=== PATIENT | female | born 1990 | race Caucasian/White ===

== ENCOUNTER 2023-09-30 09:29 | Emergency (ER) | payer BC, SELFPAY ==
[2023-09-30 09:35] VITALS: BP 133/75; PULSE 86; RESP 16; TEMP 36.9; O2SAT 100
[2023-09-30 09:40] VITALS: BP 133/75; PULSE 86; RESP 16; TEMP 36.9; O2SAT 100
--- NOTE | 2023-09-30 10:02 | ED.ABDPAIN ---
HPI - Abdominal Pain General Chief Complaint: Abdominal Pain Stated Complaint: Abdominal Pain Source: patient Mode of arrival: ambulatory Limitations: no limitations History of Present Illness HPI narrative: Patient presents for evaluation of abdominal pain. Symptom onset 0 last night. She has associated nausea and vomiting. She had some diarrhea 2 days ago. She has small bowel movement this morning which was solid and consistency. She denies any fever, urinary symptoms, vaginal bleeding or discharge. No history of similar symptoms. Pain is constant, stabbing and rated 8/10 in severity. She had bariatric surgery in the past. Denies other abdominal surgeries. LMP 09/04/23. Related Data Home Medications Medication Instructions Recorded Confirmed bupropion HCl 300 mg 24 hr tablet, mg PO 09/30/23 extended release buspirone 10 mg tablet mg 09/30/23 desvenlafaxine succinate 100 mg mg PO 09/30/23 tablet,extended release 24 hr zolpidem 12.5 mg tablet,extended mg PO 09/30/23 release,multiphase Allergies Allergy/AdvReac Type Severity Reaction Status Date / Time No Known Allergies Allergy Unknown Verified 04/06/18 15:37 Review of Systems Review of Systems: CONSTITUTIONAL: Denies fever, chills, or sweats. EYES: Denies visual changes, redness, or discharge. ENT: Denies rhinorrhea, congestion, sore throat, or otalgia. CARDIOVASCULAR: Denies chest pain, palpitations, or edema. RESPIRATORY: Denies cough or dyspnea. GASTROINTESTINAL: Reports abdominal pain, nausea, vomiting and recent diarrhea. GENITOURINARY: Denies dysuria or hematuria. SKIN: Denies rash or itching. MUSCULOSKELETAL: Denies back pain, joint pain, or myalgia. NEUROLOGIC: Denies headache, numbness, dizziness, or weakness. PSYCHIATRIC: Denies anxiety or depression. [facility] Past Medical History Medical History Obesity Surgical History Surgical History History of bariatric surgery Family History Family History Mother Family history unknown Social History Social History Substance use: never Living arrangements: with family Gender identity (if verbalized by the patient): Female Sexual Orientation (if Verbalized by the Patient): Straight or Heterosexual Spiritual care concerns: No Exam Narrative: GENERAL: Well-appearing, well-nourished, and in no acute distress. HEAD: Normocephalic, atraumatic. EYES: PERRLA and EOMI. ENT: Nares clear, no rhinorrhea or epistaxis. Mucous membranes moist. Oropharynx without tonsillar hypertrophy exudate or other lesions. Bilateral TMs pearly altamirano nonbulging NECK: Supple. No adenopathy or masses. No carotid bruits or JVD CHEST: Clear to auscultation. No respiratory distress. No wheezes rales or rhonchi HEART: Regular rate and rhythm. No murmur heard. Normal peripheral pulses. ABDOMEN: Soft, nondistended, normal active bowel sounds. Diffuse abdominal tenderness without rebound or guarding EXTREMITIES: Normal range of motion. No edema. SKIN: Warm, dry, no rash. NEURO: No focal deficits. Alert and oriented x3. PSYCH: Normal mood and affect. Course Course Emergency Course: This is a 32-year-old female who presented for evaluation of abdominal pain. She has diffuse abdominal tenderness on exam. She would benefit from serum labs and potential imaging. I recommended pt be transferred to the emergency department. She was agreeable and indicated that [place] is her facility of choice. I contacted [facility] and spoke with Peewee, charge nurse. He indicated that Dr Miller will accept pt for transfer there. Pt transferred by private vehicle. Level of Care: Express Care Visit Vital Signs Vital signs: Vital Signs Temperature 36.9 C 06/0
== END 2023-09-30 10:06 | disposition short-term general hospital (02) ==
PROVIDERS: Emergency Provider Nurse Practitioner; PCP Nurse Practitioner
DX: R10.9 Unspecified abdominal pain (principal); E66.9 Obesity, unspecified; Z68.36 Body mass index [BMI] 36.0-36.9, adult
CPT/HCPCS: 99212; G0463

== ENCOUNTER 2023-09-30 10:30 | Day surgery (SDC) | payer BC, SELFPAY ==
[2023-09-30] VITALS (11 sets, daily range): BP systolic 112–141; BP diastolic 60–92; PULSE 80–106; RESP 14–20; TEMP 36.5–37.1; O2SAT 98–100
--- NOTE | ~2023-09-30 | CT_ITS ---
EXAMINATION: CT abdomen pelvis w con DATE: 09/30/2023 11:55 INDICATION: Upper abdominal pain. TECHNIQUE: Computed tomography (CT) of the abdomen and pelvis was performed with 100 mL Omnipaque 350 intravenous contrast. Automated exposure control and iterative reconstruction technique were employe d. The dose-length product was 766.79 mGy-cm. COMPARISON: None. FINDINGS: The visualized portions of the lung bases demonstrate minimal atelectasis on the right. No pleural effusion. The heart size is normal. No pericardial effusion. There are changes of gastric sle jorge procedure. The liver, gallbladder, spleen, pancreas, adrenal glands, and left kidney are normal. There are cysts in right kidney measuring up to 5 mm. There are appendicoliths in the appendix, which is fluid-filled and dilated to 12 mm with surrounding fat stranding. There are no pathologically enl arged lymph nodes. There is no free intraperitoneal fluid. There is moderate lumbar spondylosis. IMPRESSION: 1. Acute appendicitis. I called this result to Johnnie Sahu. Reviewed, dictated and finalized at location A.
--- NOTE | 2023-09-30 10:42 | ED.ABDPAIN ---
HPI - Abdominal Pain General Chief Complaint: Abdominal Pain <Johnnie Sahu APRN - Last Filed: 09/30/23 13:30> Stated Complaint: abdominal pain <Johnnie Sahu APRN - Last Filed: 09/30/23 13:30> Time Seen by Provider: 09/30/23 10:35 <Johnnie Sahu APRN - Last Filed: 09/30/23 13:30> Source: patient <Johnnie Sahu APRN - Last Filed: 09/30/23 13:30> Mode of arrival: ambulatory <Johnnie Sahu APRN - Last Filed: 09/30/23 13:30> Limitations: no limitations <Johnnie Sahu APRN - Last Filed: 09/30/23 13:30> History of Present Illness HPI narrative: Morales Watkins is a 32-year-old female patient presenting to the ER today with complaints of severe upper abdominal pain that started around 7:00 p.m. last night. She reports it is across the abdomen but more so on the left upper quadrant. History acid reflux in the past. States this pain is a sharp pain and constant. Currently rates her pain 6/10. Last bowel movement was this morning and normal for the patient. Denies any blood in her stool. Last time she ate was yesterday at 8:00 a.m.. States that the pain is not worse after eating. History of ventral sleeve. No history of hiatal hernia, gallbladder issues, or am bowel issues. No past EGD or colonoscopy was performed. States she did have a barium swallow done for the ventral sleeve in the past. He denies any urinary symptoms. She denies any chance of . Last menstrual period was September 03. <Johnnie Sahu APRN - Last Filed: 09/30/23 13:30> Related Data Home Medications: Home Medications Medication Instructions Recorded Confirmed bupropion HCl 300 mg 24 hr tablet, mg PO 09/30/23 extended release buspirone 10 mg tablet mg 09/30/23 desvenlafaxine succinate 100 mg mg PO 09/30/23 tablet,extended release 24 hr zolpidem 12.5 mg tablet,extended mg PO 09/30/23 release,multiphase <Johnnie Sahu APRN - Last Filed: 09/30/23 13:30> Allergies/Adverse Reactions: Allergies Allergy/AdvReac Type Severity Reaction Status Date / Time No Known Allergies Allergy Unknown Verified 09/30/23 10:38 <Johnnie Sahu APRN - Last Filed: 09/30/23 13:30> Review of Systems Review of Systems: Pertinent positives per HPI. Patient denies any fever, chills, rash, headache, visual changes, dizziness, cough, runny nose, sore throat, shortness of breath, chest pain, palpitations, vomiting, diarrhea, constipation, or any urinary issues. <Johnnie Sahu APRN - Last Filed: 09/30/23 13:30> [facility] Past Medical History Medical History: Medical History Obesity <Johnnie Sahu APRN - Last Filed: 09/30/23 13:30> Surgical History Surgical History: Surgical History History of bariatric surgery History of delivery <Johnnie Sahu APRN - Last Filed: 09/30/23 13:30> Family History Family History: Family History Mother Family history unknown <Johnnie Sahu APRN - Last Filed: 09/30/23 13:30> Social History Social History: Social History Substance use: never Living arrangements: with family Gender identity (if verbalized by the patient): Female Sexual Orientation (if Verbalized by the Patient): Straight or Heterosexual Spiritual care concerns: No <Johnnie Sahu APRN - Last Filed: 09/30/23 13:30> Comments At the time of my signature, I reviewed and agree with the nursing past medical, surgical, social, and family history. There is no relevant family history pertinent to the patient complaint. <Johnnie Sahu APRN - Last Filed: 09/30/23 13:30> Exam Narrative: General: Well-developed, well nourished, in no apparent distress. Head: Normocephalic,
[2023-09-30 11:14] LABS: Basophils Percent Auto 0.3 % (0.2-1.2); Eosinophils Percent Auto 0.3 % (0-4.4); Hematocrit 39.5 % (37.0-47.0); Hemoglobin 13.3 g/dL (12.0-15.0); Immature Granulocyte Absolute 0.04 K/mm3 (0.00-0.031); Immature Granulocyte Percent A 0.3 % (0-0.5); Lymphocytes Absolute Auto 3.18 K/mm3 (0.9-3.2); Lymphocytes Percent Auto 24.7 % (18.3-44.2); Mean Corpuscular HGB Conc 33.7 g/dl (32-36); Mean Corpuscular Hemoglobin 29.9 pg (26-34); Mean Corpuscular Volume 88.8 fl (80-100); Mean Platelet Volume 8.7 fl (7.4-10.4); Monocytes Absolute Auto 0.7 K/mm3 (0.1-0.6); Monocytes Percent Auto 5.3 % (2.6-8.5); Neutrophils Absolute Auto 8.9 K/mm3 (1.3-6.7); Neutrophils Percent Auto 69.1 % (45.5-73.1); Platelet Count Result 271 k/mm3 (150-375); Red Blood Count 4.45 M/mm3 (4.2-5.4); Red Cell Distribution Width 12.8 % (11.5-14.5); White Blood Count 12.9 K/mm3 (4.5-10.0)
[2023-09-30 11:21] LABS: Appearance Urine Clear (Clear); Bilirubin Urine Negative (Negative); Blood Urine Negative (Negative); Color Urine Yellow (Yellow); Glucose Urine UA Negative (Negative); Ketones Urine Trace mg/dL (Negative); Leukocyte Esterase Ur Negative LEU/UL (Negative); Nitrate Urine Negative (Negative); Protein Urine Negative (Negative); Urobilinogen Urine 0.2 mg/dL (<2.0); pH Urine 5.5 (5.0-9.0)
[2023-09-30 11:24] LABS: Alanine Aminotransferase 26 U/L (6-35); Albumin Level 4.6 g/dL (3.5-5.1); Alkaline Phosphatase 60 U/L (38-126); Anion Gap 8 mmol/L (4-12); Aspartate Amino Transferase 24 U/L (14-36); Bilirubin,Total 0.6 mg/dL (0.2-1.3); Blood Urea Nitrogen 11 mg/dL (7-17); Calcium 9.3 mg/dL (8.4-10.2); Carbon Dioxide 23 mmol/L (22-30); Chloride 105 mmol/L (98-107); Estimated CRCL calculation 94 ml/min; Estimated Glomerular Filt Rate > 60; Glucose 106 mg/dL (65-110); Lipase 96 U/L (23-300); Potassium 4.1 mmol/L (3.4-5.0); Sodium 136 mmol/L (137-145)
[2023-09-30 11:58] LABS: Add Urine Microscopic? NO
[2023-09-30] MEDS: ONDANSETRON INJ 4 MG/2 ML VIAL IV PUSH (12:27)
[2023-09-30] MEDS: MORPHINE SULFATE (*CRX) 4 MG/ML INJ IV PUSH (12:27)
[2023-09-30] MEDS: SODIUM CHLORIDE 0.9% IV 1,000 ML 150 ML IV CONT (12:28)
[2023-09-30] MEDS: PIPERACILLN/TAZ 3.375GM/NS50ML 3.375 GM/50 ML BAG IVPB (12:28)
--- NOTE | 2023-09-30 14:03 | PC.NURSE ---
IV fluids are infusing upon transfer to OR
--- NOTE | 2023-09-30 14:20 | PM.IMHP ---
H&P: HPI History of Present Illness Date/Time: 09/30/23 14:20 Chief Complaint: Abdominal pain Narrative: This is a 32 year old woman who presented to the ER with abdominal pain x 1 day. She began having pain across her upper abdomen yesterday after dinner. Her pain progressed through the night and into today has localized into the RLQ. She had associated nausea and vomiting, and presented to the ER. Workup in the ER showed mild leukocytosis and CT evidence of acute appendicitis. Our service was consulted and she is now seen for surgical evaluation of appendicitis. Only previous abdominal surgeries include laparoscopic gastric sleeve and delivery. Review of Systems Review of Systems: All systems reviewed & are unremarkable except as noted in HPI and below PMFSH Past Medical History Medical History Obesity Surgical History Surgical History History of bariatric surgery History of delivery Family History Family History Mother Family history unknown Social History Social History Substance use: never Living arrangements: with family Gender identity (if verbalized by the patient): Female Sexual Orientation (if Verbalized by the Patient): Straight or Heterosexual Spiritual care concerns: No Meds Home Medications and Allergies Home Medications Medication Instructions Recorded Confirmed Type bupropion HCl 300 mg 24 hr tablet, mg PO 09/30/23 History extended release buspirone 10 mg tablet mg 09/30/23 History desvenlafaxine succinate 100 mg mg PO 09/30/23 History tablet,extended release 24 hr zolpidem 12.5 mg tablet,extended mg PO 09/30/23 History release,multiphase Allergies Allergy/AdvReac Type Severity Reaction Status Date / Time No Known Allergies Allergy Unknown Verified 09/30/23 10:38 Vital Signs Vital Signs - 24 hr 09/30/23 10:35 09/30/23 12:00 Temperature 98.7 F Pulse Rate 83 85 Respiratory Rate 15 18 Blood Pressure 141/84 H 123/92 H Pulse Oximetry 100 98 Oxygen Delivery Room Air Exam Const: General: comfortable and no acute distress Nutritional Appearance: average body habitus Orientation/consciousness: patient oriented x3 HENMT: Head: normocephalic and atraumatic Ears: hearing grossly normal bilaterally Mouth: Yes moist mucous membranes Eyes: General: appearance normal, both eyes and all related structures Pupils: Equal, round and reactive pupils present Neck: Neck: normal visual inspection and full ROM Resp: Effort & Inspection: no respiratory distress Auscultation: clear to auscultation bilaterally Cardio: Rate: regular rate Rhythm: regular rhythm Heart sounds: S1 normal heart sound present and S2 normal heart sound present Peripheral pulses: Peripheral pulses 2+ throughout GI: Inspection: non-distended, obesity and no visible herniation GI Palp: Yes Soft to palpation, Yes Tenderness to palpation present (GI) (RLQ), No Guarding due to palpation present (GI), Yes No hepatosplenomegaly present and No Rebound tenderness present Percussion: Yes normal to percussion Auscultation: normal bowel sounds Skin: General skin exam: normal color Neuro: General: moves all extremities and no focal motor deficits Speech: normal speech Motor exam (neuro): 5/5 motor strength present throughout Extrem: General: normal to inspection and no edema Psych: Mental Status: mental status grossly normal Attitude: cooperative Insight: Good insight present (Psych) Judgement: Good judgement present (Psych) H&P: Results Labs Labs: Short CBC 09/30/23 Range/Units 11:05 WBC 12.9 H (4.5-10.0) K/mm3 Hgb 13.3 (12.0-15.0) g/dL Hct 39.5 (37.0-47.0) % Plt Count 271 (150-375) k/mm3 BMP 09/30/23 11:05 So
--- NOTE | 2023-09-30 14:30 | WPDANESEPPF ---
Anes - Initial Pre Proc Eval Procedure: Operation Date: 09/30/23 15:00 Proposed Procedures p Laparoscopic Appendectomy - Pamela Romero MD Date/Time: 09/30/23 14:30 Surgeon: Pamela Romero MD Pre Op Diagnosis: abdominal pain Patient Data Age: 32 Gender: F Height: 1.57 m Weight: 95 kg Last Vital Signs Temp 37.1 C 09/30/23 10:35 Pulse 85 09/30/23 12:00 Resp 18 09/30/23 12:00 BP 123/92 H 09/30/23 12:00 Pulse Ox 98 09/30/23 12:00 O2 Del Method Room Air 09/30/23 10:35 Allergies Allergy/AdvReac Type Severity Reaction Status Date / Time No Known Allergies Allergy Unknown Verified 09/30/23 10:38 Home Medications Medication Instructions Recorded Confirmed Type bupropion HCl 300 mg 24 hr tablet, mg PO 09/30/23 History extended release buspirone 10 mg tablet mg 09/30/23 History desvenlafaxine succinate 100 mg mg PO 09/30/23 History tablet,extended release 24 hr zolpidem 12.5 mg tablet,extended mg PO 09/30/23 History release,multiphase Laboratory Tests 09/30/23 11:05 WBC 12.9 H K/mm3 (4.5-10.0) RBC 4.45 M/mm3 (4.2-5.4) Hgb 13.3 g/dL (12.0-15.0) Hct 39.5 % (37.0-47.0) MCV 88.8 fl (80-100) MCH 29.9 pg (26-34) MCHC 33.7 g/dl (32-36) RDW 12.8 % (11.5-14.5) Plt Count 271 k/mm3 (150-375) MPV 8.7 fl (7.4-10.4) Immature Gran % (Auto) 0.3 % (0-0.5) Neut % (Auto) 69.1 % (45.5-73.1) Lymph % (Auto) 24.7 % (18.3-44.2) Rankin % (Auto) 5.3 % (2.6-8.5) Eos % (Auto) 0.3 % (0-4.4) Baso % (Auto) 0.3 % (0.2-1.2) Lymph # (Auto) 3.18 K/mm3 (0.9-3.2) Rankin # (Auto) 0.7 H K/mm3 (0.1-0.6) Eos # (Auto) 0.0 K/mm3 (0-0.3) Baso # (Auto) 0.0 K/mm3 (0.0-0.1) Abs Immat Gran (auto) 0.04 H K/mm3 (0.00-0.031) Absolute Neuts (auto) 8.9 H K/mm3 (1.3-6.7) Absolute Nucleated RBC 0.000 K/mm3 (0.0-0.012) Nucleated RBC % 0.0 % (0.0-0.2) Sodium 136 L mmol/L (137-145) Potassium 4.1 mmol/L (3.4-5.0) Chloride 105 mmol/L (98-107) Carbon Dioxide 23 mmol/L (22-30) Anion Gap 8 mmol/L (4-12) BUN 11 mg/dL (7-17) Creatinine 0.80 mg/dL (0.7-1.0) Estim Creat Clear Calc 94 ml/min Estimated GFR > 60 (59 - ) Glucose 106 mg/dL (65-110) Calcium 9.3 mg/dL (8.4-10.2) Total Bilirubin 0.6 mg/dL (0.2-1.3) AST 24 U/L (14-36) ALT 26 U/L (6-35) Alkaline Phosphatase 60 U/L (38-126) Total Protein 8.0 g/dL (6.3-8.2) Albumin 4.6 g/dL (3.5-5.1) Lipase 96 U/L (23-300) Urine Color Yellow (Yellow) Urine Appearance Clear (Clear) Urine pH 5.5 (5.0-9.0) Ur Specific [place] 1.030 (1.001-1.035) Urine Protein Negative mg/dL (Negative) Urine Glucose (UA) Negative mg/dL (Negative) Urine Ketones Trace H mg/dL (Negative) Ur Blood (Man) Negative (Negative) Urine Nitrate Negative (Negative) Urine Bilirubin Negative (Negative) Urine Urobilinogen 0.2 mg/dL (<2.0) Leukocyte Esterase Rfl Negative HANNA/UL (Negative) Patient hx anesthesia problems: none Family hx anesthesia problems: none Results Review: All pre-operative results and documents have been reviewed as part of the pre-operative evaluation. [facility] Past Medical History Medical History Obesity Surgical History Surgical History History of bariatric surgery History of delivery Family History Family History Mother Family history unknown Social History Social History Substance use: never Living arrangements: with family Gender identity (if verbalized by the patient): Female Sexual Orientation (if Verbalized by the Patient)
--- NOTE | 2023-09-30 14:34 | WPDHPUPDATE1 ---
History and Physical Update Update Date/Time: 09/30/23 14:34 History and Physical has been reviewed, including an updated exam of the patient. There are NO changes in the patient's condition. Risks, benefits, and alternatives have been discussed and questions answered. Patient agrees to proceed with procedure.
[2023-09-30] MEDS: LACTATED RINGERS 1,000 ML 30 ML IV CONT ×2 (14:41→15:34)
[2023-09-30] MEDS: BUPIVACAINE/EPINEPHRINE 0.5% 50 ML VIAL 30 ML INFILTRATE (15:03)
--- NOTE | 2023-09-30 15:40 | W.PM.PROC2 ---
Procedure Note - Detailed Date of Procedure 09/30/23 Pre-op Diagnosis acute appendicitis Post-op Diagnosis Same Procedure Performed laparoscopic appendectomy Surgeon Pamela Romero MD Anesthesia General Indications 32-year-old female presenting to the emergency department complaining of right lower quadrant abdominal pain. Workup, including imaging, was significant for acute appendicitis. Findings acute appendicitis no evidence of perforation Description of Procedure The patient was taken to the operating room and placed in the supine position. After adequate induction of general anesthesia, the patient was prepped and draped in the normal sterile fashion. A time-out was then done to verify the patient's identity, as well as the procedure being performed. I began by making a 5 mm incision in the infraumbilical region, through this a Veress needle was placed in the peritoneal cavity. CO2 gas was then insufflated and after adequate pneumoperitoneum was achieved the Veress needle was removed. Then placed a 5 mm Optiview trocar under direct visualization into the peritoneal cavity. I then insufflated through this trocar site and the endoscope was placed into the trocar. Under direct visualization, placed 2 further 5 mm suprapubic port as well as an additional 12 mm port in the left lower abdomen. At this point identified the cecum, I retracted the cecum both medially and superiorly allowing me to expose the appendix. The appendix was noted to be dilated and inflamed. The appendix was noted to be very adherent to the right lateral sidewall as well as the ileum. I was able to bluntly dissect the appendix from these adhesions. I then was able to locate the base of the appendix with the cecum. I created a window with the [place] dissector between the appendix itself and the mesoappendix. I then transected the mesoappendix with a white vascular staple load. The Endo-MONET was then reloaded with a blue staple load and I transected the base of the appendix. Once the specimen was completely detached, an endo-pouch was placed into the 12 mm port site and the specimen was removed through the endo-pouch. The appendiceal specimen will be sent to pathology for further review. I then copiously irrigated the right lower quadrant. Hemostasis was noted at both staple lines no other pathology was seen in this area. I then moved the camera to the suprapubic port to check our its port of entry. No iatrogenic injury or other pathology was noted in the upper abdomen. I then closed the 12 mm port site with a Federico code and 0 Vicryl suture under direct visualization. At this point, the abdomen was desufflated and all ports were removed. All port sites were closed with 4 Monocryl subcuticular suture. Dermabond was placed on all wounds. The patient tolerated the procedure well and was extubated in the operating room postop. She will be sent to the recovery room in stable condition. Estimated Blood Loss 10 Drains No Packing No Pathology Yes Complications No immediate complications Condition Stable Disposition PACU [facility] Billing Surgery - Charge Forward: Surgery Billing
--- NOTE | 2023-09-30 15:52 | SUR.PHASEI ---
simple mask removed at 1550
[2023-09-30] MEDS: oxyCODONE HCL (*CRX) 5 MG TAB IR PO (16:30)
== END 2023-09-30 17:06 | disposition home or self-care (01) ==
LOC: ANHED 13:30 → ANHSURGERY 13:45
PROVIDERS: Emergency Provider Nurse Practitioner Family; PCP Nurse Practitioner; Visit Provider Surgery
PROC: 0DTJ4ZZ Resection of Appendix, Percutaneous Endoscopic Approach (ICD-10-PCS; CPT 44970; principal; 2023-09-30 15:00)
DX: K35.30 Acute appendicitis with localized peritonitis, without perforation or gangrene (principal); E66.9 Obesity, unspecified; Z68.38 Body mass index [BMI] 38.0-38.9, adult; Z98.84 Bariatric surgery status
CPT/HCPCS: 44970; 36415; 74177; 80053; 81003; 81025; 83690; 85025; 88304; 96365; 96375; 99285; A9270; J0330; J1100; J2250; J2270; J2405; J2543; J2704; J3010; J7030; J7120; Q9967